=== PATIENT | male | born 1960 | race Caucasian/White ===

== ENCOUNTER 2019-04-16 14:08 | Emergency (ER) | payer OTHER ==
[~2019-04-16] VITALS: Ht 175.3 cm; Wt 88.1 kg
[~2019-04-16 14:08] MED LIST: ASPI-903 PO; ATOR20TA65 PO; CYCL10TA7 PO; HYDR-4011 PO; IBUP800T48 PO; LISI-313 PO; METO-448 PO; NICO-546 TRANSDERM; PANT40TA4 PO; PRAS10TA6 PO
[2019-04-16 14:11] VITALS: BP 119/76; PULSE 82; RESP 16; Ht 175.3 cm; Wt 88.1 kg
[2019-04-16] MEDS ORDERED: SOD CHLORIDE 0.9% 1,000 ML IV STA (15:07)
[2019-04-16] MEDS ORDERED: ASPIRIN 325 MG TAB PO STA (15:07)
[2019-04-16] MEDS ORDERED: ONDANSETRON 4 MG INJ IV STA ×2 (15:16→16:32)
[2019-04-16] MEDS ORDERED: morphine 4 MG/ML VIAL IV STA (15:16)
[2019-04-16] MEDS ORDERED: CYCLOBENZAPRINE 10 MG TAB PO ONE (15:30)
--- NOTE | 2019-04-16 16:23 | ERD ---
ER Documentation Chief Complaint Chief Complaint LEFT SHOULDER PAIN X1 WEEK, NO INJURY HPI This is a very pleasant 58-year-old male presents to the emergency department with 10 days of neck pain that began to radiate down to his left arm. The patient indicates that 2 days before the onset of his pain he was swinging a bat at the [employer]. He is right-handed dominant. When he awoke 2 days later he stated he had pain to the left side of his neck. He went to his primary care physician who did not prescribe any medications. He called his primary care physician today as he stated the pain is worse when he wakes up in the morning and when he attempts to move his neck. She indicated that he should go to the emergency department to be further evaluated. The patient denies any fevers. He denies a headache. He denies any chest pain or pressure. The patient is on anticoagulant medication as he has a cardiac stent. He denies any weakness of his upper or lower extremities. The pain he indicates is a spasm-like sensation with [id number] that radiates to his left arm. ROS All systems reviewed and are negative except as per history of present illness. Medications Home Meds Active Scripts Lisinopril* (Lisinopril*) 5 Mg Tablet, 5 MG PO DAILY, #30 TAB Prov:LIBAN MENDOZA MD 10/09/18 Pantoprazole* (Pantoprazole*) 40 Mg Tablet.dr, 40 MG PO BID, #60 TAB 3 Refills Prov:LIBAN MENDOZA MD 10/09/18 Nicotine* (Nicotine* Patch) 21 mg/day Patch, 1 PATCH TRANSDERM DAILY for 42 Days, #42 PATCH Prov:LIBAN MENDOZA MD 10/09/18 Metoprolol Tartrate* (Lopressor*) 25 Mg Tab, 25 MG PO BID, #60 TAB 3 Refills Prov:LIBAN MENDOZA MD 10/09/18 Atorvastatin Calcium (Atorvastatin Calcium) 20 Mg Tablet, 20 MG PO HS, #90 TAB 3 Refills Prov:LIBAN MENDOZA MD 10/09/18 Reported Medications Prasugrel Hydrochloride* (Effient*) 10 Mg Tablet, 10 MG PO DAILY, TAB 10/05/18 Aspirin* (Aspirin* Chew) 81 Mg Tab.chew, 81 MG PO DAILY, TAB.CHEW 10/05/18 Allergies Allergies: Coded Allergies: No Known Allergy (Unverified , 10/05/18) PMhx/Soc History of Surgery: Yes (Stent placement) Anesthesia Reaction: No Hx Neurological Disorder: No Hx Respiratory Disorders: No Hx Cardiac Disorders: Yes ([place]) Hx Psychiatric Problems: No Hx Miscellaneous Medical Probl: No Hx Alcohol Use: Yes (Stopped now) Hx Substance Use: No Hx Tobacco Use: No Smoking Status: Never smoker Physical Exam Vitals Vital Signs Date Temp Pulse Resp B/P (MAP) Pulse Ox O2 O2 Flow FiO2 Time Delivery Rate 04/16/19 97.6 82 16 119/76 100 14:11 (90) Physical Exam Constitutional:Well-developed. Well-nourished. HEENT:Normocephalic. Atraumatic.Pupils were equal round reactive to light. Moist mucous membranes.No tonsillar exudates. Neck: No nuchal rigidity. No lymphadenopathy. No posterior cervical spine tenderness or step-offs. Tenderness over the left sternocleidomastoid. No expanding neck hematoma. Patient has twisting of the neck to the left. Respiratory: Not using accessory muscles of respiration.Lungs were clear to au scultation bilaterally. No rhonchi. No rales. No wheezing. Cardiovascular: Regular rate regular rhythm.No murmurs. No rubs were appreciated.S1, S2 normal. Distal pulses are palpable 2+ bilaterally. GI: Abdomen was soft. Nontender. Non Distended. No pulsatile abdominal masses or bruits. No rebound. No guarding. Bowel sounds were present and normal. Muscle skeletal: Full range of motion of both the upper and lower extremities bilaterally.Normal muscle tone.No assymetrical calf tenderness or swelling. Tenderness of the left humeral head. Patient able to abduct the left upper extremity past 90 degrees. Normal lie to the left humeral head. Skin: No petechia, no purpura. No lesions on the palms or the soles of the feet. No maculopapular rash. NEURO: Patient was alert, awake, orientated x3.No facial droop. Gait observed and normal with no ataxia.Speech had regular rate and rhythm. No focal neurological deficits. Sensation intact over the radial ulnar median nerve dissipation actually nerve of the left upper extremity. Patient was able to oppose all digits of the left upper extremity. Result Diagram: 04/16/19 1517 04/16/19 1517 Results 24 hrs Laboratory Tests Test 04/16/19 15:16 04/16/19 15:17 Prothrombin Time 12.5 Sec Prothrombin Time Ratio 1.0 INR International Normalized Ratio 0.92 Activated Partial Thromboplast Time 26.9 Sec White Blood Count 8.1 10^3/ul Red Blood Count 3.98 10^6/ul Hemoglobin 10.0 g/dl Hematocrit 33.1 % Mean Corpuscular Volume 83.2 fl Mean Corpuscular Hemoglobin 25.1 pg Mean Corpuscular Hemoglobin Concent 30.2 g/dl Red Cell Distribution Width 16.5 % Platelet Count 199 10^3/UL Mean Platelet Volume 9.6 fl Immature Granulocytes % 0.200 % Neutrophils % 75.0 % Lymphocytes % 18.9 % Monocytes % 4.2 % Eosinophils % 1.5 % Basophils % 0.2 % Nucleated Red Blood Cells % 0.0 /100WBC Immature Granulocytes # 0.020 10^3/ul Neutrophils # 6.1 10^3/ul Lymphocytes # 1.5 10^3/ul Monocytes # 0.3 10^3/ul Eosinophils # 0.1 10^3/ul Basophils # 0.0 10^3/ul Nucleated Red Blood Cells # 0.0 10^3/ul Sodium Level 139 mmol/L Potassium Level 3.1 mmol/L Chloride Level 102 mmol/L Carbon Dioxide Level 26 mmol/L Anion Gap 11 Blood Urea Nitrogen 11 mg/dl Creatinine 0.86 mg/dl Est Glomerular Filtrat Rate mL/min > 60 mL/min Glucose Level 137 mg/dl Calcium Level 9.7 mg/dl Total Bilirubin 0.8 mg/dl Direct Bilirubin 0.00 mg/dl Indirect Bilirubin 0.8 mg/dl Aspartate Amino Transf (AST/SGOT) 32 IU/L Alanine Aminotransferase (ALT/SGPT) 28 IU/L Alkaline Phosphatase 81 IU/L Creatine Kinase 33 IU/L Creatine Kinase Index 0.7 Creatinine Kinase MB (Mass) < 0.22 ng/ml Troponin I < 0.012 ng/ml B-Type Natriuretic Peptide 72 PG/ML Total Protein 7.5 g/dl Albumin 4.5 g/dl Globulin 3.00 g/dl Albumin/Globulin Ratio 1.50 Lipase 77 U/L Current Medications Medications Dose Sig/Rosamaria Start Time Status Last (Trade) Ordered Route PRN Stop Time Admin Dose Reason Admin Sodium 1,000 ml @ Q1H STAT 04/16/19 DC 04/16/19 Chloride 1,000 mls/hr IV 15:07 15:26 04/16/19 16:06 Aspirin 325 mg ONCE STAT 04/16/19 DC 04/16/19 (Aspirin) PO 15:07 15:26 04/16/19 15:09 Morphine 4 mg ONCE STAT 04/16/19 DC 04/16/19 Sulfate IV 15:16 15:27 (morphine) 04/16/19 15:21 Ondansetron 4 mg ONCE STAT 04/16/19 DC 04/16/19 HCl (Zofran IV 15:16 15:26 Inj) 04/16/19 15:21 10 mg ONCE ONCE 04/16/19 DC 04/16/19 Cyclobenzapri PO 15:30 15:27 ne HCl 04/16/19 15:31 (Flexeril) Procedures/MDM This is a 58-year-old male that presented to the emergency department physical exam findings are suggestive of torticollis and cervical radiculopathy. My clinical suspicion was low for meningitis. The patient does have a history of a cardiac stent therefore I did feel is necessary to rule out atypical myocardial ischemia. Patient's troponin was within normal limits. Chest radiograph showed no infiltrates or pneumothorax. 12 Lead EKG tracing ordered and reviewed by myself showed: Normal sinus rhythm of 81 bpm and no arrhythmia. IA interval normal. QRS duration normal. No ST segment elevation No ST segment depression. No changes consistent with acute ischemia. I also obtained a two-view radiograph of the patient's left shoulder. He had arthritic changes of the glenohumeral joint however there is no evidence of dislocation or fracture of the humeral head. Received analgesic medication and muscle relaxants as I did feel this was secondary to a muscle spasm with cervical radiculopathy. No focal neurological deficits to suggest a ce rebrovascular accident. Patient good muscular strength of the left upper extremity and sensation was intact over the radial ulnar median nerve dissipation of the left upper extremity with no signs of compartment syndrome or necrotizing fasciitis. The patient was discharged home in fair condition. They were instructed to return to the emergency department at any time if there was any worsening of their condition. The patient stated they would follow up with their PCP in the next 24-48 hours to initiate a suitable medication regimen under the care of their PCP as well as to allow their PCP to monitor any drug reactions. The patient was discharged home with prescriptions after they gave informed consent to the new medication. They were also fully informed by myself on the adverse effects and adverse drug interactions in order to provide adequate safeguards to prevent possible adverse reactions to medications. Departure Diagnosis: Primary Impression: Torticollis, acute Additional Impression: Cervical radiculopathy Condition: ACOSTA Cook MD Apr 16, 2019 16:23
[2019-04-16] MEDS ORDERED: HYDROmorphONE 1 MG/ML SYG IV STA (16:32)
== END 2019-04-16 17:37 | disposition home or self-care (01) ==
LOC: E/R 14:08
DX: M43.6 Torticollis (principal); M54.12 Radiculopathy, cervical region; I25.2 Old myocardial infarction; M79.602 Pain in left arm; Z98.61 Coronary angioplasty status; Z79.82 Long term (current) use of aspirin
CPT/HCPCS: 71045; 73030; 80053; 82550; 82553; 83690; 83880; 84484; 85025; 85610; 85730; 96374; 96375; 96376; J1170; J2270; J2405; J7030; Z7502; Z7610; 93005